=== PATIENT | female | born 1930 | race Caucasian/White ===

== ENCOUNTER 2016-09-13 21:05 | Emergency (ER) | payer MEDICARE, BC ==
--- NOTE | 2016-09-14 06:11 | ER ---
ADMIT: 09/13/2016 RM/LOC: ER [facility] MR#: [id number] [address] [place] [address] Emergency Room Report SEX: F AGE: 86 : 1930 DATE: 09/13/2016 The patient is an 86-year-old female, resident of [place], transferred tonight due to bilious vomiting x1. Normal bowel movement earlier in the day. Denies any fevers, chills, cough, or significant pain. The patient was hospitalized August 24 through for similar presentation, was evaluated by Dr. Nielson for large ventral hernia, found not a good surgical candidate. Exam remarkable for nontoxic, chronically ill-appearing female with pallor, large ventral hernia minimally tender. Bowel sounds active. Chest x-ray, no acute findings. CT abdomen and pelvis shows incomplete small bowel obstruction, improved over CT of 3 weeks ago. Hemoglobin 10.4, stable from previous CRP 4.03. Procalcitonin less than 0.05. Troponin less than 0.015. BNP 1053. Lactic 1.0. D-dimer 3.33. INR 1.02. EKG showed sinus rhythm with atrial pacemaker low voltage. Discussed findings with family, who are in agreement with this physician for conservative care. We will do clear liquid diet tomorrow. Advance to regular diet on Thursday. Strongly encouraged daughter taking active role in decision making for disposition in the future regarding need for hospitalization, since the patient is not a good surgical candidate. Kenny Michaels MD/ linn JOB #: [id number] CC: Kenny Michaels MD, Attending Physician Anoop Laguerre MD, Family Physician Anoop Laguerre MD
== END 2016-09-14 01:20 | disposition home or self-care (01) ==
LOC: ER 21:05
DX: K43.9 Ventral hernia without obstruction or gangrene (principal); I10 Essential (primary) hypertension; Z86.73 Personal history of transient ischemic attack (TIA), and cerebral infarction without residual deficits; Z90.710 Acquired absence of both cervix and uterus; Z90.89 Acquired absence of other organs; Z79.899 Other long term (current) drug therapy